=== PATIENT | female | born 1980 | race Caucasian/White ===

== ENCOUNTER 2017-07-29 06:12 | Day surgery (SDC) | payer OTHER ==
[~2017-07-29] VITALS: Ht 162.6 cm; Wt 74.4 kg
[2017-07-29] MEDS ORDERED: ACETAMINOPHEN/CODEINE 300/30MG 1 TAB PO PRN (07:35)
[2017-07-29] MEDS ORDERED: IBUPROFEN 800 MG TAB PO PRN (07:35)
[2017-07-29] MEDS ORDERED: ONDANSETRON 4 MG/2 ML VIAL IVP PRN (07:35)
[2017-07-29] MEDS ORDERED: MORPHINE SULFATE 4 MG/ML SYR IM/IVP PRN (07:35)
[2017-07-29] MEDS ORDERED: ACET-2869 PO (08:11)
[2017-07-29] MEDS ORDERED: IBUP-2213 PO (08:12)
[2017-07-29] MEDS ORDERED: PROPOFOL 200 MG/20 ML VIAL IV ONE (09:31)
[2017-07-29] MEDS ORDERED: MIDAZOLAM 2 MG/2 ML VIAL ONE (09:53)
[2017-07-29] MEDS ORDERED: MORPHINE SULFATE 4 MG/ML SYR ONE (09:53)
[2017-07-29] MEDS ORDERED: fentaNYL 0.05 MG/ML VIAL ONE (09:53)
[2017-07-29] MEDS ORDERED: METOCLOPRAMIDE 10 MG/2 ML INJ VIAL IVP PRN ×3 (10:05)
[2017-07-29] MEDS ORDERED: MIDAZOLAM 2 MG/2 ML VIAL IV ONE ×3 (10:05)
[2017-07-29] MEDS ORDERED: MORPHINE SULFATE 4 MG/ML SYR IVP PRN ×6 (10:05)
[2017-07-29] MEDS ORDERED: MORPHINE SULFATE 2 MG/ML SYR IVP PRN ×3 (10:05)
[2017-07-29] MEDS ORDERED: MORPHINE SULFATE 4 MG/ML SYR IVP ONE (11:11)
== END 2017-07-29 12:10 | disposition home or self-care (01) ==
LOC: MDS 06:12 → MMU 06:12 → MDS 12:10
PROVIDERS: ATTEND Obstetrics & Gynecology
DX: N92.1 Excessive and frequent menstruation with irregular cycle (principal); E66.01 Morbid (severe) obesity due to excess calories; Z98.890 Other specified postprocedural states; Z79.899 Other long term (current) drug therapy; Z68.31 Body mass index [BMI] 31.0-31.9, adult; Z91.09 Other allergy status, other than to drugs and biological substances
CPT/HCPCS: J2250; J2270; J2704; J3010; J7120